=== PATIENT | male | born 1970 | race Caucasian/White ===

== ENCOUNTER 2025-01-29 17:26 | Emergency (ER) | payer BC ==
--- NOTE | 2025-01-29 17:30 | ERPHSYRPT ---
- History of Present Illness Time Seen by Provider: 01/29/25 17:30 Source: patient Exam Limitations: no limitations Physician History: This is a 55-year-old white male patient that noticed redness of his right forearm that began 2 days ago and worsened despite being on Augmentin antibiotics for 2 full days. The patient was brought to the emergency room by private vehicle accompanied by his spouse. He has not had a fever. He is nearly wanting an injection of antibiotics and a different antibiotic. He does not feel that the antibiotics he is on has helped. Patient's spouse is concerned that the redness of his right forearm is not responding to Augmentin, might be metastatic disease from his rectal cancer. She is wanting a CT scan of the right forearm. Patient has had chemo and radiation to treat the rectal cancer in the past and completed his treatment 1 year ago this month. Patient is resistant to the idea of IV line placement, laboratory data draws and CT scan of the right forearm at this time. Timing/Duration: day(s) (2), worse Quality: painful (Mild pain) Severity: mild Location: extremities (Right forearm) Possible Causes: no cause identified Associated Symptoms: denies symptoms Allergies/Adverse Reactions: morphine Allergy (Verified 01/29/25 17:35) Nausea Home Medications: Amoxicillin/Potassium Clav [Augmentin 500-125 Tablet] 1 each PO BID 01/29/25 [History] Famotidine [Pepcid] 20 mg PO BID 01/29/25 [History] Multivitamin 1 each PO DAILY 01/29/25 [History] Travel Risk - International Travel Have you traveled outside of the country in past 3 weeks: No - Emerging Infectious Disease Are you exhibiting symptoms associated with any current EIDs: No - Review of Systems Constitutional: No Symptoms Eyes: No Symptoms Ears, Nose, & Throat: No Symptoms Respiratory: No Symptoms Cardiac: No Symptoms Abdominal/Gastrointestinal: No Symptoms Genitourinary Symptoms: No Symptoms Musculoskeletal: No Symptoms Skin: Cellulitis (Right forearm) Neurological: No Symptoms Psychological: No Symptoms Endocrine: No Symptoms Hematologic/Lymphatic: No Symptoms Immunological/Allergic: No Symptoms All Other Systems: Reviewed and Negative - Past Medical History Pertinent Past Medical History: Yes - Nursing Vital Signs Nursing Vital Signs: Initial Vital Signs Pulse Rate 84 01/29/25 17:34 Respiratory Rate 18 01/29/25 17:34 Blood Pressure 137/82 01/29/25 17:34 O2 Sat by Pulse Oximetry 98 01/29/25 17:34 Pain Scale Pain Intensity 0 - Physical Exam General Appearance: no apparent distress, alert Eye Exam: PERRL/EOMI, eyes nml inspection Ears, Nose, Throat Exam: normal ENT inspection, moist mucous membranes Neck Exam: normal inspection, non-tender, supple, full range of motion Respiratory Exam: airway intact, No chest tenderness, No respiratory distress Gastrointestinal/Abdomen Exam: No tenderness Rectal Exam: not done Back Exam: normal inspection, normal range of motion, No vertebral tenderness Extremity Exam: normal range of motion, pelvis stable, swelling (Right forearm compared to the left forearm), other (Cellulitis present on right forearm) Neurologic Exam: alert, oriented x 3, cooperative, 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 Warmth and redness present. No fluid collection or abscess) Lymphatic Exam: No adenopathy SpO2 Interpretation: normal O2 Delivery: Room Air - Course Nursing assessment & vital signs reviewed: Yes Ordered Tests: Medication Summary Discontinued Medications Generic Name Dose Route Start Last Admin Trade Name Freq PRN Reason Stop Dose Admin Ceftriaxone Sodium 1,000 mg 01/29/25 18:14 Ceftriaxone Sodium 1000 Mg Inj Vial IM 01/29/25 18:15 STAT ONE Ceftriaxone Sodium Confirm 01/29/25 18:19 Ceftriaxone Sodium 1000 Mg Inj Vial Administered 01/29/25 18:20 Dose 1,000 mg .ROUTE .STK-MED ONE Levofloxacin 500 mg 01/29/25 18:14 Levofloxacin 500 Mg Tablet PO 01/29/25 18:15 STAT ONE Levofloxacin Confirm 01/29/25 18:19 Levofloxacin 500 Mg Tablet Administered 01/29/25 18:20 Dose 500 mg .ROUTE .STK-MED ONE Lidocaine HCl Confirm 01/29/25 18:20 Lidocaine Hcl 1% 20 Ml Mdv 20 Ml Ml Administered 01/29/25 18:21 Dose 2 ml .ROUTE .STK-MED ONE - Progress Progress: unchanged, re-examined Progress Note: 01/29/25 18:31 My medical decision making and the assignment of low complexity of this pat ient's medical issue today is based on review of the patient's past medical history, review the patient's medication list, reviewed patient drug allergy list, history of present illness and physical findings on examination. The workup in this patient is based on what we (the patient and the patient's spouse) discussed and decided upon. Ultimately, the patient has decided against a CAT scan of his right forearm, against intravenous line placement and blood draw. I do not necessarily feel this is unreasonable. The plan is to treat him with intramuscular Rocephin and oral Levaquin followed by outpatient antibiotics of Bactrim and Keflex. He is to stop the Augmentin. He is to return to the emergency department for reassessment/evaluation in 24 hours and sooner if symptoms worsen. Differential diagnosis includes but is not limited to cellulitis, induration, insect bite. Less likely is there lymphangitis/metastatic disease to the skin. There is no evidence on examination of compartment syndrome. Counseled pt/family regarding: diagnosis, need for follow-up Medical Desision Making - Independent Historian Additional History obtained from: Spouse - Diagnostic Testing Diagnostic test were ordered, analyzed, and reviewed by me: No - Risk of complications Low Risk: Low risk of morbidity from additional dx testing or treatment The pt has a mod risk of morbidity or mortality based on: Need for prescription drug management - Departure Departure Disposition: Home Clinical Impression: Right forearm cellulitis Condition: Stable Critical Care Time: No Additional Instructions: Stop the Augmentin. Take the new antibiotics. Return to the emergency department in 24 hours for reassessment. Do not wait the full 24 hours if symptoms/signs are worsening. Call your primary care provider tomorrow, 01/30/2025, to make arrangements for follow-up appointment for further evaluation management. Prescriptions: Smz/Tmp Ds Tablet [Bactrim Ds Tablet] 1 udtab PO BID #14 tablet Cephalexin Mh 500 mg [Keflex 500 mg] 500 mg PO TID #21 cap
[2025-01-29 17:53] VITALS: RESP 18
[2025-01-29 17:54] VITALS: TEMP 98.9
[2025-01-29] MEDS ORDERED: Levofloxacin 500 MG Tablet ONE (18:19)
[2025-01-29] MEDS ORDERED: Rocephin 1000 MG INJ ONE (18:19)
[2025-01-29] MEDS ORDERED: XYLOCAINE 1% HCL 20 ML MDV ONE (18:20)
[2025-01-29] MEDS: Rocephin 1000 MG INJ IM ONE (18:21)
[2025-01-29] MEDS: Levofloxacin 500 MG Tablet PO ONE (18:21)
[2025-01-29 18:41] VITALS: BP 144/83; PULSE 71; O2SAT 100
== END 2025-01-29 18:50 | disposition home or self-care (01) ==
LOC: ED 17:26
DX: L03.113 Cellulitis of right upper limb (principal); Z79.899 Other long term (current) drug therapy

== ENCOUNTER 2025-01-30 12:52 | Emergency (ER) | payer BC ==
[2025-01-30 13:29] VITALS: PULSE 78; TEMP 98.5; O2SAT 100
--- NOTE | 2025-01-30 13:40 | ERPHSYRPT ---
- History of Present Illness Time Seen by Provider: 01/30/25 13:25 Source: patient Exam Limitations: no limitations Patient Subjective Stated Complaint: cellulitus to the right arm Triage Nursing Assessment: Pt brought to the ER by his , hypertensive, rates pain as 3/10, pulses normal, skin n/w/d, pt was in this ER yesterday and arm was marked and the redness and swelling has increased, pt has not been responding to antibiotics, denies chest pain, denies difficulty breathing Physician History: This is a right handed 54-year-old white male patient who is by private vehicle accompanied by his and is a patient of Dr. Perdomo with documented cellulitis that has worsened over the last 4 days despite outpatient antibiotic therapy. There is increased swelling redness and tenderness today yesterday, 01/29/2021, patient refused an intravenous line, obtaining labs and CAT scan of the right upper extremity. He is back today and now agrees to the therapy that was offered him yesterday. Patient is afebrile on arrival to the emergency department Timing/Duration: day(s) (4) Quality: painful (Mild) Severity: mild Location: extremities (Right forearm and elbow) Possible Causes: no cause identified Associated Symptoms: change in skin texture Allergies/Adverse Reactions: morphine Allergy (Verified 01/30/25 13:29) Nausea Home Medications: Amoxicillin/Potassium Clav [Augmentin 500-125 Tablet] 1 each PO BID 01/29/25 [History] Famotidine [Pepcid] 20 mg PO BID 01/29/25 [History] Multivitamin 1 each PO DAILY 01/29/25 [History] Hx Tetanus, Diphtheria Vaccination/Date Given: No Hx Influenza Vaccination/Date Given: No Hx Pneumococcal Vaccination/Date Given: No Travel Risk - International Travel Have you traveled outside of the country in past 3 weeks: No - Emerging Infectious Disease Are you exhibiting symptoms associated with any current EIDs: No - Review of Systems Constitutional: No Symptoms Eyes: No Symptoms Ears, Nose, & Throat: No Symptoms Respiratory: No Symptoms Cardiac: No Symptoms Abdominal/Gastrointestinal: No Symptoms Genitourinary Symptoms: No Symptoms Musculoskeletal: No Symptoms Skin: Cellulitis (Right forearm and elbow) Neurological: No Symptoms Psychological: No Symptoms Endocrine: No Symptoms Hematologic/Lymphatic: No Symptoms Immunological/Allergic: No Symptoms All Other Systems: Reviewed and Negative - Past Medical History Pertinent Past Medical History: Yes Musculoskeletal History: No Pertinent History GI Medical History: GERD, Other History: No Pertinent History Psycho-Social History: No Pertinent History Male Reproductive Disorders: No Pertinent History Other Medical History: hx stage 3 rectal cancer, prostate cancer - Past Surgical History Past Surgical History: Yes Gastrointestinal: Other Male Surgical History: Prostate Surgery Other Surgical History: radical prostate surgery for cancer - Social History Smoking Status: Never smoker Exposure to second hand smoke: No Drug Use: none - Social Determinants of Health Will the patient participate in the screening: Yes Do you worry about a steady place to live?: No Do you have any problems with any of the following?: No known problems In the past 12 months,have you had to go without utilities?: No Transportation Issues: No Has anyone in your support network made you feel unsafe?: No Have you or anyone in your house had to go w/o enough food: No - Nursing Vital Signs Nursing Vital Signs: Initial Vital Signs Temperature 98.5 F 01/30/25 13:20 Pulse Rate 78 01/30/25 13:20 Blood Pressure 153/93 01/30/25 13:20 O2 Sat by Pulse Oximetry 100 01/30/25 13:20 Pain Scale Pain Intensity 3 - Physical Exam General Appearance: no apparent distress, alert, anxiety Eye Exam: PERRL/EOMI, eyes nml inspection Ears, Nose, Throat Exam: normal ENT inspection, moist mucous membranes Neck Exam: normal inspection, non-tender, supple, full range of motion Respiratory Exam: airway intact, No chest tenderness, No respiratory distress Gastrointestinal/Abdomen Exam: No tenderness Rectal Exam: not done Back Exam: normal inspection, normal range of motion, No CVA tenderness, No vertebral tenderness Extremity Exam: normal range of motion, swelling (Worse than yesterdayright upper extremity), tenderness (Right upper extremity worse), other (Cellulitis is tracking proximally compared to yesterday's evaluation) Neurologic Exam: alert, oriented x 3, cooperative, 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, nml cerebellar function, nml station & gait, sensation nml Skin Exam: other (Cellulitis, warmth, redness and swelling worse than yesterday) Lymphatic Exam: No adenopathy SpO2 Interpretation: normal SpO2: 100 O2 Delivery: Room Air - Course Nursing assessment & vital signs reviewed: Yes Ordered Tests: Active Orders 24 hr Category Date Time Status IV Insertion STAT Care 01/30/25 13:38 Active UPPER EXTREMITY W/O CONTRAST [CT] Stat Exams 01/30/25 13:38 Completed BLOOD CULTURE Stat Lab 01/30/25 15:03 Received CBC W DIFF Stat Lab 01/30/25 14:20 Completed CMP Stat Lab 01/30/25 14:09 Completed Lactic Acid Stat Lab 01/30/25 14:20 Completed PROCALCITONIN Stat Lab 01/30/25 14:09 Completed Lab/Rad Data: Laboratory Result Diagrams 01/30/25 14:20 01/30/25 14:09 Laboratory Results 01/30/25 01/30/25 01/30/25 Range/Units 14:20 14:20 14:09 WBC 6.7 (4.23-9.07) x10^3/uL RBC 4.54 L (4.63-6.08) x10^6/uL Hgb 13.6 L (13.7-17.5) g/dL Hct 40.9 (40.1-51.0) % MCV 90.1 (79.0-92.2) fL MCH 30.0 (25.7-32.2) pg MCHC 33.3 (32.3-36.5) g/dL RDW 12.5 (11.6-14.4) % Plt Count 198 (163-337) x10^3/uL MPV 9.7 (9.4-12.4) fL Gran % 78.5 H (34.0-67.9) % Immature Gran % (Auto) 0.3 (0.001-0.429) % Nucleat RBC Rel Count 0.0 (0.00-0.2) % Eos # (Auto) 0.02 L (0.04-0.54) x10^3/uL Immature Gran # (Auto) 0.02 (0.001-0.031) x10^3u/L Absolute Lymphs (auto) 0.79 L (1.32-3.57) x10^3/uL Absolute Monos (auto) 0.61 (0.30-0.82) x10^3/uL Absolute Nucleated RBC 0.00 (0.00-0.012) x10^3u/L Lymphocytes % 11.8 L (21.8-53.1) % Monocytes % 9.1 (5.3-12.2) % Eosinophils % 0.3 L (0.8-7.0) % Basophils % 0.0 L (0.2-1.2) % Absolute Granulocytes 5.26 (1.78-5.38) x10^3/uL Basophils # 0 L (0.01-0.08) x10^3/uL Sodium (135-145) mmol/L Potassium (3.5-5.1) mmol/L Chloride (98-107) mmol/L Carbon Dioxide (22-30) mmol/L Anion Gap (5-15) MEQ/L BUN (9-20) mg/dL Creatinine (0.66-1.25) mg/dL Estimated GFR ML/MIN Glucose (74-106) mg/dL Lactic Acid 1.1 (0.4-2.0) Calcium (8.4-10.2) mg/dL Total Bilirubin (0.2-1.3) mg/dL AST (17-59) U/L ALT (0-50) U/L Alkaline Phosphatase (38-126) U/L Serum Total Protein (6.3-8.2) g/dL Albumin (3.5-5.0) g/dL Procalcitonin 0.031 (0.030-0.080) ng/mL 01/30/25 Range/Units 14:09 WBC (4.23-9.07) x10^3/uL RBC (4.63-6.08) x10^6/uL Hgb (13.7-17.5) g/dL Hct (40.1-51.0) % MCV (79.0-92.2) fL MCH (25.7-32.2) pg MCHC (32.3-36.5) g/dL RDW (11.6-14.4) % Plt Count (163-337) x10^3/uL MPV (9.4-12.4) fL Gran % (34.0-67.9) % Immature Gran % (Auto) (0.001-0.429) % Nucleat RBC Rel Count (0.00-0.2) % Eos # (Auto) (0.04-0.54) x10^3/uL Immature Gran # (Auto) (0.001-0.031) x10^3u/L Absolute Lymphs (auto) (1.32-3.57) x10^3/uL Absolute Monos (auto) (0.30-0.82) x10^3/uL Absolute Nucleated RBC (0.00-0.012) x10^3u/L Lymphocytes % (21.8-53.1) % Monocytes % (5.3-12.2) % Eosinophils % (0.8-7.0) % Basophils % (0.2-1.2) % Absolute Granulocytes (1.78-5.38) x10^3/uL Basophils # (0.01-0.08) x10^3/uL Sodium 137 (135-145) mmol/L Potassium 3.9 (3.5-5.1) mmol/L Chloride 104 (98-107) mmol/L Carbon Dioxide 25 (22-30) mmol/L Anion Gap 13.1 (5-15) MEQ/L BUN 19 (9-20) mg/dL Creatinine 1.13 (0.66-1.25) mg/dL Estimated GFR 76.8 ML/MIN Glucose 118 H (74-106) mg/dL Lactic Acid (0.4-2.0) Calcium 9.5 (8.4-10.2) mg/dL Total Bilirubin 0.30 (0.2-1.3) mg/dL AST 30 (17-59) U/L ALT 26 (0-50) U/L Alkaline Phosphatase 52 (38-126) U/L Serum Total Protein 8.4 H (6.3-8.2) g/dL Albumin 4.7 (3.5-5.0) g/dL Procalcitonin (0.030-0.080) ng/mL - Progress Progress: unchanged, re-examined Progress Note: 01/30/25 14:46 My medical decision making and the assignment of moderate complexity of this patient's medical issue today is based on review of the patient's past medical history, reviewed patient's medication list, reviewed patient drug allergy list, history of present illness and physical findings on examination. The workup in this patient includes placement of intravenous line, blood cultures, procalcitonin, lactic acid level, CBC, CMP, CT scan of the right upper extremity without contrast. Differential diagnosis includes but is not limited to cellulitis, lymphangitis, lymphedema, metastatic disease, failed outpatient therapy The CT scan of the right upper extremity was performed without contrast and interpreted by the radiologist. The impression states mild to moderate subcutaneous soft tissue swelling/edema seen posterior laterally. There are no walled off fluid collections or soft tissue emphysema. There are no acute fractures or suspicious bony lesions. 01/30/25 15:33 I interpreted the patient's laboratory data results. Based on laboratory data results, there are no acute, emergent medical issues. I reviewed the workup results with the patient and his spouse. The patient has worsening cellulitis despite injectable and oral antibiotics over the last 3 to 4 days. I do not think it is unreasonable to place this patient in the inpatient setting. However, they prefer to go to [facility] for further evaluation and management. 01/30/25 16:[address] Romero Marquez who is the internal medicine/hospitalist from [facility] ([facility]. I reviewed the patient history, presenting complaint, physical findings on examination and the workup results. He accepts the patient in transfer. He stated he will have infectious disease physician evaluate this patient while in the hospital receiving intravenous antibiotics. He stated they do not have dermatology on staff. He asked that I notify the patient and family that that is the case. The hospital will call us back with a bed assignment. I did discuss my communication with Dr. Romero Marquez from [facility]. They are aware that there is no kiln firer on staff. The patient will transport by private vehicle. He is medically stable to do so. We will keep the intravenous line in place. Counseled pt/family regarding: lab results, diagnosis, rad results Medical Desision Making - Independent Historian Additional History obtained from: Spouse - Diagnostic Testing Diagnostic test were ordered, analyzed, and reviewed by me: Yes Radiological Interpretation: Reviewed by me, Teleradiologist Report - Risk of complications The pt has a high risk of morbidity or mortality based on: Decision regarding hospitilization or escalation of hosp level of care - Departure Departure Disposition: Transfer Clinical Impression: Cellulitis of right upper extremity, Failure of outpatient treatment Condition: Stable Critical Care Time: No Referrals: ERIKA PERDOMO [Primary Care Provider, [facility]] - Follow up/PCP as directed
[2025-01-30 14:24] LABS: BASOPHIL % 0.0 % (0.2-1.2); Basophil (Absolute #) 0 x10^3/uL (0.01-0.08); Eosinophil (Absolute #) 0.02 x10^3/uL (0.04-0.54); Hematocrit 40.9 % (40.1-51.0); Hemoglobin 13.6 g/dL (13.7-17.5); IMMATURE GRAN # 0.02 x10^3u/L (0.001-0.031); IMMATURE GRAN % 0.3 % (0.001-0.429); Lymphocyte (Absolute #) 0.79 x10^3/uL (1.32-3.57); Mean Corpuscular Hemoglobin 30.0 pg (25.7-32.2); Mean Corpuscular Hgb Concent. 33.3 g/dL (32.3-36.5); Monocyte (Absolute #) 0.61 x10^3/uL (0.30-0.82); NUCLEATED RBC # 0.00 x10^3u/L (0.00-0.012); NUCLEATED RBC % 0.0 % (0.00-0.2); Platelet Count 198 x10^3/uL (163-337); Red Blood Count 4.54 x10^6/uL (4.63-6.08); White Blood Count 6.7 x10^3/uL (4.23-9.07)
--- NOTE | 2025-01-30 14:31 | XRAY ---
Indication: Cellulitis. Swelling. Multiple contiguous axial images obtained through right forearm without contrast. Sagittal and coronal reformatted images obtained. Comparison: None Mild/moderate subcutaneous soft tissue swelling/edema seen posterior laterally. No walled-off fluid collection or soft tissue emphysema. Elbow and wrist articulation appears anatomic. Osseous structures demonstrates tiny spurring olecranon process. No acute fracture or suspicious bony lesions. Impression: Subcutaneous soft tissue swelling/edema presumed clinically reported cellulitis. Tiny spurring olecranon process. Remaining CT right forearm without contrast exam is negative.
[2025-01-30 14:38] LABS: Calcium 9.5 mg/dL (8.4-10.2); Carbon Dioxide 25.0 mmol/L (22-30); Creatinine 1 1.13 mg/dL (0.66-1.25); EST GLOMERULAR FILTRATION RATE 76.8 ML/MIN; Glucose 118.0 mg/dL (74-106); Potassium 3.9 mmol/L (3.5-5.1); SGOT/AST 30.0 U/L (17-59); SGPT/ALT 26.0 U/L (0-50); Total Protein 8.4 g/dL (6.3-8.2)
[2025-01-30 16:57] VITALS: BP 144/83
== END 2025-01-30 17:06 | disposition short-term general hospital (02) ==
LOC: ED 12:52
DX: L03.113 Cellulitis of right upper limb (principal); Z79.899 Other long term (current) drug therapy